=== PATIENT | male | born 1970 | race Two or more races ===

== ENCOUNTER 2018-04-12 11:03 | Emergency (ER) | payer OTHER ==
--- NOTE | 2018-04-12 11:53 | EDM.PDOC ---
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 The patient reports that he was using a instrument lens grinder to grind a piece of metal when the instrument lens grinder caught and pulled up into his left thumb. The patient reports that he was wearing a leather glove at the time of the injury. The patient denies any difficulties moving the thumb. Onset: Today Duration: Minutes: Location: Reports: Upper Extremity, Left Quality: Reports: Ache, Dull Severity: Mild Improves with: Reports: None Worsens with: Reports: None Associated Symptoms: Reports: No Other Symptoms Left 1-Thumb Pain Score (Numeric/FACES): 8 - Related Data Allergies Allergy/AdvReac Type Severity Reaction Status Date / Time No Known Allergies Allergy Verified 04/12/18 11:38 Home Meds: Home Meds . [No Known Home Meds] 04/12/18 [History] Past Medical History - Past Surgical History Musculoskeletal Surgical History: Reports: Other (See Below) Other Musculoskeletal Surgeries/Procedures:: Fx right leg Social & Family History - Tobacco Use Smoking Status *Q: Never Smoker - Caffeine Use Caffeine Use: Reports: Coffee, Soda - Alcohol Use Days Per Week of Alcohol Use: 2 Number of Drinks Per Day: 2 Total Drinks Per Week: 4 - Recreational Drug Use Recreational Drug Use: No Review of Systems - Review of Systems Review Of Systems: ROS reveals no pertinent complaints other than HPI. ED EXAM, GENERAL - Physical Exam Exam: See Below Exam Limited By: No Limitations General Appearance: Alert, WD/WN, Mild Distress Eye Exam: Bilateral Eye: EOMI, Normal Inspection, PERRL Ears: Normal External Exam, Normal Canal, Hearing Grossly Normal, Normal TMs Nose: Normal Inspection, Normal Mucosa, No Blood Throat/Mouth: Normal Inspection, Normal Lips, Normal Teeth, Normal Gums, Normal Oropharynx, Normal Voice, No Airway Compromise Head: Atraumatic, Normocephalic Neck: Normal Inspection, Supple, Non-Tender, Full Range of Motion Respiratory/Chest: No Respiratory Distress, Lungs Clear, Normal Breath Sounds, No Accessory Muscle Use, Chest Non-Tender Cardiovascular: Normal Peripheral Pulses, Regular Rate, Rhythm, No Edema, No Gallop, No JVD, No Murmur, No Rub GI/Abdominal: Normal Bowel Sounds, Soft, Non-Tender, No Organomegaly, No Distention, No Abnormal Bruit, No Mass (Male) Exam: Deferred Rectal (Males) Exam: Deferred Extremities: Normal Range of Motion, No Pedal Edema, Normal Capillary Refill Neurological: Alert, Oriented, CN II-XII Intact, Normal Cognition, Normal Gait, Normal Reflexes, No Motor/Sensory Deficits Psychiatric: Normal Affect, Normal Mood Skin Exam: Warm, Dry, Normal Color, No Rash, Wound/Incision (left thumb extending from proximal to the DIP joint diagonally across the joint to distal to the DIP joint) Lymphatic: No Adenopathy ED TRAUMA EXTREMITY PROCEDURES - Laceration/Wound Repair Left Digit - 1st (Thumb) Lac/Wound Length In cm: 3.5 Appearance: Subcutaneous Distal NVT: Neuro & Vascular Intact Anesthetic Type: Local Local Anesthesia - Lidocaine (Xylocaine): 1% Plain Local Anesthetic Volume: 3cc Skin Prep: Chlorhexidine (Hibiciens), Saline Exploration/Debridement/Repair: Wound Explored, In a Bloodless Field, Explored to Base, Foreign Material Removed Closed With: Sutures Suture Size: 4-0 # of Sutures: 6 Suture Type: Prolene, Interrupted, Simple Drain Placement: No Sterile Dressing Applied: Nurse Tetanus Status Addressed: Yes Complications: No Course - Vital Signs Last Recorded V/S: Last Vital Signs Temp 36.6 C 04/12/18 11:31 Pulse 70 04/12/18 11:31 Resp 16 04/12/18 11:31 BP 129/86 04/12/18 11:31 Pulse Ox 97 04/12/18 11:31 - Orders/Labs/Meds Orders: Active Orders 24 hr Category Date Time Status Fingers Thumb Lt FA [CR] Urgent Exams 04/12/18 11:36 Ordered Meds: Medications Discontinued Medications Generic Name Dose Route Start Last Admin Trade Name Freq PRN Reason Stop Dose Admin Bacitracin 1 dose 04/12/18 11:54 04/12/18 11:59 Bacitracin Oint 1 Gm TOP 04/12/18 11:55 1 dose ONETIME ONE Administration Lidocaine HCl 30 ml 04/12/18 11:54 04/12/18 11:59 Xylocaine-Mpf 1% INJECT 04/12/18 11:55 30 ml ONETIME ONE Administration Departure - Departure Time of Disposition: 12:48 Disposition: Home, Self-Care 01 Condition: Fair Clinical Impression: Laceration of left thumb Qualifiers: Encounter type: initial encounter Damage to nail status: without damage Foreign body presence: with foreign body Qualified Code(s): S61.022A - Laceration with foreign body of left thumb without damage to nail, initial encounter - Discharge Information *PRESCRIPTION DRUG MONITORING PROGRAM REVIEWED*: Not Applicable *COPY OF PRESCRIPTION DRUG MONITORING REPORT IN PATIENT VINOD: Not Applicable Instructions: Stitches, [place], or Adhesive Wound Closure, [id number], Laceration Care, Adult, [id number] Forms: ED Department Discharge Care Plan Goals: The patient was advised of the examination results during the visit. The wound margins were well approximated during the visit. The patient should keep the area clean and dry over the next 48 hours. The patient should have the sutures removed in 10-14 days. The patient should keep the area covered during work. If the patient has any additional symptoms or concerns, the patient should follow- up with his primary care facility or return to the ED. - My Orders Last 24 Hours: My Active Orders 04/12/18 11:36 Fingers Thumb Lt FA [CR] Urgent - Assessment/Plan Last 24 Hours: My Active Orders 04/12/18 11:36 Fingers Thumb Lt FA [CR] Urgent
[2018-04-12] MEDS ORDERED: Lidocaine 1% 30 ML SDV INJECT ONE (11:54)
[2018-04-12] MEDS ORDERED: Bacitracin Oint 1 GM U/D Packet TOP ONE (11:54)
== END 2018-04-12 13:09 | disposition home or self-care (01) ==
LOC: DL.ED 11:03
DX: S61.012A Laceration without foreign body of left thumb without damage to nail, initial encounter (principal); W31.9XXA Contact with unspecified machinery, initial encounter
CPT/HCPCS: 12002; 40830; 73140-FA; 99284